=== PATIENT | female | born 1970 ===

== ENCOUNTER 2023-09-27 04:44 | Emergency (ER) | payer OTHER, SELFPAY ==
[2023-09-27 04:46] VITALS: BP 174/104
[2023-09-27 05:34] LABS: % Basophils 0.8 % (0-2); % Eosinophils 2.4 % (0-6); % Immature Granulocytes 0.3 % (0-0.5); % Lymphocytes 25.7 % (20.5-51.1); % Monocytes 6.6 % (1.7-9.3); % Neutrophils 64.2 % (42.2-75.2); Absolute Basophils 0.1 10^3/uL (0-0.2); Absolute Eosinophils 0.3 10^3/uL (0-0.7); Absolute Lymphocytes 3.1 10^3/uL (1.2-3.4); Absolute Monocytes 0.8 10^3/uL (0.1-0.6); Absolute Neutrophils 7.6 10^3/uL (1.4-6.5); Hematocrit 36.4 % (37.0-47.0); Mean Corpuscular Hgb 27.8 pg (27.0-31.0); Mean Corpuscular Volume 84.5 fL (81.0-99.0); Mean Platelet Volume 9.8 fL (7.4-10.4); Nucleated Red Blood Cells % 0 %; Platelet Count 296 10^3/uL (130-400); Red Blood Cell Count 4.31 10^6/uL (4.20-5.40); Red Cell Dist. Width 13.9 % (11.5-14.5); White Blood Cell Count 11.9 10^3/uL (4.8-10.8)
[2023-09-27 05:59] VITALS: BMI 33.2
[2023-09-27 06:00] VITALS: BP 152/88
[2023-09-27 06:02] LABS: ALT (SGPT) 28 U/L (0-35); AST (SGOT) 26 U/L (14-36); Albumin 4.6 g/dl (3.5-5.0); Alkaline Phosphatase 51 U/L (38-126); Blood Urea Nitrogen 17 mg/dl (7-17); Calcium 9.9 mg/dl (8.4-10.2); Carbon Dioxide 24 mmol/L (22-30); Chloride 105 mmol/L (98-107); Estimated Creatinine Clearance 117 ml/min; Glucose 125 mg/dl (70-99); Sodium 137 mmol/L (135-145); Total Bilirubin 0.7 mg/dl (0.2-1.3); Total Protein 7.9 g/dl (6.3-8.2); eGFR > 60.00
[2023-09-27] MEDS: NSS 1000 IV (06:11)
--- NOTE | 2023-09-27 06:18 | ED.GENMED ---
History of Present Illness
General
Chief Complaint: Abdominal Pain
Source: patient
Time Seen by Provider: 09/27/23 06:11
Travel History
Have you had any contact with someone who has COVID-19?: No
Do you have any symptoms of coronavirus? Fever > 100 degrees, chills, cough, shortness of breath, sore throat, loss of taste or smell, muscle aches, or headache?: No
History of Present Illness
History of Present Illness:
This patient is a 52-year-old female who presents emergency department complaints of lower abdominal pain that started on Tuesday. The pain will wax and wane in intensity, but is been constant since Tuesday and is currently rated as a 5 out of 10.
She had 4 loose nonbloody stools on Tuesday, no bowel movement yesterday. She has leftover Tylenol with codeine which was helping with her symptoms. She notes slight nausea and anorexia, denies vomiting, fever, chills, chest pain, dyspnea, back
pain, urinary symptoms, or other complaints. She describes the pain as crampy, and mostly in the left lower quadrant, somewhat reminiscent of prior episode of diverticulitis.
Past History
Past History
ED Past Medical History: Other (uterine fibroids, endometriosis)
ED Past Surgical History: Cholecystectomy
Social History
Tobacco: Non-smoker
Alcohol: Occasional
Drug: None
Personal:
Living: with family
Employment: Employed
Phy Exam
Physical Exam
Physical Exam:
GENERAL: Alert , in no apparent distress, pleasant
EYE: pupils equal and reactive
NECK: Supple, no significant adenopathy.
ENT: o/p clr, mmm.
CARDIAC: Regular rate and rhythm .
LUNGS: Clear breath sounds bilaterally, no acute respiratory distress, no wheezes/rales/rhonchi
ABDOMEN: Soft, mild lower abdominal tenderness greatest at left lower quadrant, no r/g, no cvat
NEUROLOGICAL: Alert and oriented, no focal neuro deficits
SKIN: Warm and dry, skin intact.
MUSCULOSKELETAL: No edema, well perfused.
PSYCH: Normal and appropriate interaction.
Course
Orders/Labs/Results
Orders:
Orders
09/27/23 05:27
CMP [Comprehensive Metabolic Panel] Urgent
Complete Blood Count/With Diff Urgent
HCG, Serum Qualitative Screen Urgent
Comment: ADD ON
Lipase Urgent
Comment: ADD ON
09/27/23 05:57
Add On- LAB Urgent
Tests Added?: lipase and HCG
09/27/23 06:10
0.9% Sodium Chloride 1000 ml [Nss] 1,000 ml IV BOLUS
09/27/23 06:18
CT Abd/Pel (IV only)-DH only Urgent
Comment:
Reason For Exam: llq pain
Ketorolac [Toradol] 15 mg IV NOW STA
09/27/23 07:24
Urinalysis Reflex To Culture Urgent
Date Specimen was Collected: 09/27/23
Time Specimen was Collected: 05:57
09/27/23 07:59
Morphine Sulfate 4 mg IV NOW STA
Abnormal Lab Results
09/27/23
05:27
WBC 11.9 H 10^3/uL
(4.8-10.8)
Hct 36.4 L %
(37.0-47.0)
Absolute Neuts (auto) 7.6 H 10^3/uL
(1.4-6.5)
Absolute Monos (auto) 0.8 H 10^3/uL
(0.1-0.6)
Creatinine 0.5 L mg/dL
(0.6-1.0)
Glucose 125 H mg/dl
(70-99)
09/27/23 05:27
09/27/23 05:27
Vital Signs
Initial and Last Documented VS:
Initial Vital Signs
Temp Pulse Resp BP Pulse Ox
98.2 F 122 20 174/104 100
09/27/23 04:46 09/27/23 04:46 09/27/23 04:46 09/27/23 04:46 09/27/23 04:46
Last Documented Vital Signs
Temp Pulse Resp BP Pulse Ox
98.1 F 112 18 141/81 97
09/27/23 06:00 09/27/23 06:00 09/27/23 06:00 09/27/23 07:23 09/27/23 07:23
*Critical Care Note
Total Time (30-74mins, 75-104mins- exclusive of procedures): Not Applicable
Update Note
Update Note:
Patient presents to the Emergency Department with ____abdominal pain
Number and Complexity of Problems Addressed at the Encounter
� Chronic conditions affecting care:
� Acute Exacerbation and/or Progression of Chronic Illness:
� Differential Diagnosis includes: But not limited to diverticulitis, abscess, kidney stone, appendicitis, etc.
Amount and/or Complexity of Data to be Reviewed and Analyzed
� I performed an independent evaluation of and my interpretation is:
EKG:
CT: Read by radiology, short segment complicated acute diverticulitis, no abscess or perforation noted, hepatomegaly with diffuse fatty liver
Xrays:
Laboratory Studies: Slight white blood cell count elevation, otherwise generally unremarkable
Other:
� Review of other/old records reveals:
� Clinical information was obtained by an independent historian:
� Prescriptions/Medications Considered but not given:
� Further testing considered but not performed:
Risk of Complications and/or Morbidity or Mortality of Patient Management
� Social determinants of health affecting care:
� Discussion with other providers (PCP, Hospitalists, Consultants, etc):
� Escalation of care including admission/observation vs risk of discharge considered: Case discussed with patient, aware of diagnosis and plan of care, feels comfortable and is eager to be treated at home with recommendations for
close follow-up and aware of reasons to return the emergency department. Is able to fill her prescription. Pain was better but is requesting a small dose of medication for pain now before discharge. She will not be driving home. Patient overall
well-appearing, talking on phone with family when I first reentered room.
ED Attending Note
-
Portions of this chart may have been created with voice recognition software.� Occasional wrong word or��sound alike� substitutions may have occurred due to the inherent limitations of voice recognition software.
Discharge Plan
Departure
Patient Disposition: Home (Routine Discharge)
Date of Disposition: 09/27/23
Time of Disposition: 08:01
Patient with high blood pressure during this ER visit?: Yes
Condition: Good
Discharge Problem:
Diverticulitis, Fatty liver
Instructions: Diverticulitis (DC), BLOOD PRESSURE
Prescriptions:
New
metronidazole 500 mg tablet
500 mg PO TID Qty: 21 0RF
ciprofloxacin HCl 500 mg tablet
500 mg PO DAILY Qty: 7 0RF
Referrals:
Maria Elena Burns MD [Family Provider] - Follow up in 2-3 days
Activity Restrictions/Additional Instructions:
IF YOU DEVELOP INCREASING, NEW, PERSISTENT PAIN, ANY FEVER, VOMITING, BLEEDING, CHEST PAIN, OR OTHER WORRISOME SIGNS, PLEASE RETURN TO THE ER IMMEDIATELY.
Interventions
Interventions:
*Risk Screen - Suicide Last Done: 09/27/23 04:46
*General Assessment Last Done: 09/27/23 06:02
*Neglect/Abuse Screening Last Done: 09/27/23 04:46
ED- Fall Risk Assessment Last Done: 09/27/23 06:03
*ED COVID-19 Vaccine History Last Done: 09/27/23 06:02
FM-Touvqe-Thqqohdeuv Assessment Last Done: 09/27/23 06:03
[2023-09-27] MEDS: TORADOL 15 MG IV (06:26)
[2023-09-27 07:06] LABS: Lipase 88 U/L (23-300)
[2023-09-27 07:23] VITALS: BP 141/81
[2023-09-27 07:23] LABS: HCG, Serum Qualitative Screen Negative
[2023-09-27 07:43] LABS: Urine Albumin Negative (Neg - Trace); Urine Bilirubin Negative (Negative); Urine Character Clear (Clear); Urine Color Yellow; Urine Glucose Negative (Negative); Urine Ketone Negative (Negative); Urine Leukocyte Negative (Negative); Urine Nitrite Negative (Negative); Urine Occult Blood Negative (Negative); Urine Urobilinogen Negative (Neg - 1+)
[2023-09-27] MEDS: LEVAQUIN 500 MG PO (08:18)
[2023-09-27] MEDS: FLAGYL 500 MG PO (08:18)
== END 2023-09-27 08:40 | disposition home or self-care (01) ==
LOC: EMR 04:44
PROVIDERS: Student in an Organized Health Care Education/Training Program; EMERGENCY PHYSICIAN Emergency Medicine; FAMILY PHYSICIAN Student in an Organized Health Care Education/Training Program
DX: K57.32 Diverticulitis of large intestine without perforation or abscess without bleeding (principal); K76.0 Fatty (change of) liver, not elsewhere classified; R03.0 Elevated blood-pressure reading, without diagnosis of hypertension
CPT/HCPCS: 99285; 96374; 96361; 74177; 80053; 81003; 83690; 84703; 85025; Q9967